=== PATIENT | male | born 1935 | race Caucasian/White ===

== ENCOUNTER 2016-10-10 07:06 | Day surgery (SDC) | payer OTHER ==
[2016-10-10] MEDS ORDERED: FUROSEMIDE 20 MG TABLET (FP) PO SCH (09:30)
[2016-10-10 09:54] VITALS: TEMP 97.6; BMI 25.7
[2016-10-10 10:15] LABS: MCH 39.4 pg (25.7-33.7); MCHC 33.6 g/dl (32.0-35.9); MEAN CELL VOLUME 117.1 fl (80-96); MEAN PLT VOLUME 7.9 fl (7.5-11.1); PLATELET COUNT 253 K/MM3 (134-434); RDW 24.4 % (11.9-15.9); WHITE BLOOD COUNT 6.5 K/mm3 (4.0-10.0)
[2016-10-10 10:33] LABS: ALBUMIN 2.9 g/dl (3.4-5.0); ANION GAP 7 (8-16); CALCIUM 7.8 mg/dL (8.5-10.1); CO2 23 mmol/L (21-32); COCKROFT - GAULT 71.09; GLUCOSE,RANDOM 103 mg/dL (74-106); MAGNESIUM 2.4 mg/dL (1.8-2.4); SGOT/AST 17 U/L (15-37); SGPT/ALT 21 U/L (12-78)
[2016-10-10 10:35] LABS: ALK PHOS 70 U/L (45-117); BILIRUBIN,TOTAL 0.4 mg/dL (0.2-1.0); TOT PROT 6.4 g/dl (6.4-8.2)
[2016-10-10 13:04] LABS: ANISOCYTOSIS 2+; HYPOCHROMIA 1+; MICROCYTOSIS 1+; PLATELET ESTIMATE ADEQUATE (NORMAL)
[2016-10-10 18:01] VITALS: BP 131/59; PULSE 65
--- NOTE | 2016-10-10 20:07 | HP ---
Admitting History and Physical - Admission Chief Complaint: Symptomatic anemia History Source: Patient - Past Medical History Renal/: Yes: BPH Heme/Onc: Yes: Other (MDS) - Smoking History Smoking history: Former smoker Have you smoked in the past 12 months: No If you are a former smoker, when did you quit?: 1987 - Alcohol/Substance Use Hx Alcohol Use: No Home Medications - Allergies Allergies/Adverse Reactions: Allergies Allergy/AdvReac Type Severity Reaction Status Date / Time Antihistamines - Alkylamine AdvReac Severe Urinary Unverified 08/18/12 14:55 Retention - Home Medications Home Medications: Ambulatory Orders Cyanocobalamin/Folic Acid [Vitamin N87-Nxokl Acid Tablet] 1 each PO DAILY tablet 08/18/12 Metoprolol Succinate 25 mg PO AM 11/19/15 Cyanocobalamin [Vitamin B12 -] 2,000 mcg PO DAILY 05/26/16 Review of Systems - Review of Systems Constitutional: reports: Weakness Eyes: denies: Double Vision, Photophobia HENT: denies: Difficult Swallowing, Epistaxis, Hearing Loss, Throat Pain, Other Neck: denies: No Symptoms, Decreased ROM, Pain on Movement, Tenderness Cardiovascular: reports: Shortness of Breath. denies: Palpitations Respiratory: reports: Exercise Intolerance, SOB, SOB on Exertion. denies: Hemoptysis, Orthopnea Gastrointestinal: denies: Constipation, Nausea Genitourinary: reports: Other (nocturia) Musculoskeletal: denies: Back Pain, Extremity Pain, Muscle Pain Integumentary: denies: Blister, Bruising, Eczema, Erythema Neurological: reports: No Symptoms Endocrine: reports: No Symptoms. denies: Unexplained Weight Loss Hematology/Lymphatic: denies: Excessive Bleeding, Swollen Glands Psychiatric: denies: Anxiety, Depression Physical Examination Vital Signs: Vital Signs Temperature 97.6 F 10/10/16 17:56 Pulse Rate 65 10/10/16 17:56 Respiratory Rate 18 10/10/16 17:56 Blood Pressure 131/59 10/10/16 17:56 O2 Sat by Pulse Oximetry (%) Constitutional: Yes: No Distress, Calm Eyes: Yes: PERRL. No: Diplopia, Ptosis, Sclera Icterus HENT: Yes: Atraumatic, Normocephalic. No: Epistaxis, Hoarseness, Rhinnorhea, Thrush, Tonsillar Exudate Neck: No: Decreased ROM, Lymphadenopathy, Tenderness, Thyromegaly Cardiovascular: Yes: Regular Rate and Rhythm Respiratory: Yes: WNL, CTA Bilaterally Gastrointestinal: Yes: Normal Bowel Sounds, Soft. No: Abdomen, Obese, Ascites, Hepatomegaly, Splenomegaly Breast(s): No: Gynecomastia Musculoskeletal: No: Joint Stiffness, Joint Swelling, Muscle Pain Extremities: No: Calf Tenderness, Cold, Cool, Cyanosis Edema: No Integumentary: Yes: WNL Neurological: Yes: WNL, Unresponsive Psychiatric: Yes: WNL Labs: CBC, BMP 10/10/16 09:35 10/10/16 09:35 Problem List - Problems (1) MDS (myelodysplastic syndrome) Assessment/Plan: MDS- transfusion requirements increasing. May need to consider procrit in future. Hct-19.5% To receive 2 units of packed cells. Code(s): D46.9 - MYELODYSPLASTIC SYNDROME, UNSPECIFIED
[2016-10-10 21:17] LABS: MCH 37.1 pg (25.7-33.7); MCHC 34.9 g/dl (32.0-35.9); MEAN CELL VOLUME 106.3 fl (80-96); MEAN PLT VOLUME 8.2 fl (7.5-11.1); PLATELET COUNT 248 K/MM3 (134-434); RDW 27.7 % (11.9-15.9); WHITE BLOOD COUNT 7.6 K/mm3 (4.0-10.0)
== END 2016-10-10 21:12 | disposition home or self-care (01) ==
LOC: JONCBLOOD 07:06 → J7W 08:46 → JONCBLOOD 21:12
PROVIDERS: ATTEND Internal Medicine Hematology & Oncology
PROC: 30233N1 Transfusion of Nonautologous Red Blood Cells into Peripheral Vein, Percutaneous Approach (ICD-10-PCS; principal; 2016-10-10)
DX: D46.9 Myelodysplastic syndrome, unspecified (principal)
CPT/HCPCS: 36415; 36430; 80053; 83735; 85025; 85027; 86850; 86900; 86901; 86922; P9038; P9058

== ENCOUNTER 2016-10-19 07:21 | Day surgery (SDC) | payer OTHER ==
[2016-10-18 16:05] VITALS: BMI 25.7
[2016-10-19 08:33] VITALS: TEMP 98.1
[2016-10-19 14:30] VITALS: BP 126/62; PULSE 74
--- NOTE | 2016-10-20 15:20 | PATH ---
Surgical Pathology Report Patient Name: CASSIDY HUSAIN [facility]. Rec. #: [id number] /Age/Gender: 1935 (Age: 81) / M Account: [id number] Location: RADIOLOGY Taken: 10/19/2016 Received: 10/19/2016 Reported: 10/20/2016 Physicians: Angel Cevallos M.D. Orville Reyes M.D. Specimen(s) Received RIGHT LUNG BIOPSY Clinical History 81-year-old male with 5 cm right lower lobe lung mass, r/o primary lung cancer Final Diagnosis LUNG, RIGHT, LOWER LOBE, CT GUIDED CORE BIOPSY: SQUAMOUS CELL CARCINOMA, MODERATELY TO POORLY DIFFERENTIATED (SEE COMMENT). Comment: Immunohistochemical stains performed and interpreted at [facility] show the following: The tumor cells are positive for Ae1/Ae3 and p63 immunostains, and are negative for TTF1, CK7, and CK20. The morphologic findings and the immunoprofile are consistent with moderately to poorly differentiated squamous cell carcinoma. PD-L1 IHC (Keytruda) is pending; results will be reported in an addendum. The case was discussed with Dr. Reyes on 10/20/16. Electronically Signed Beka Monteiro M.D. Addendum Reported: 10/26/2016 Addendum Diagnosis PD-L1 Immunohistochemistry Analysis performed and interpreted at [facility] [place] (Specimen #[id number]) shows the following results. PD-L1 (KEYTRUDA) Tumor Proportion Score: 1% Interpretation: Low Expression See [facility] report for additional details. Robert Ruiz M.D. Gross Description Received in formalin labeled "right lung biopsy" are 4 menchaca, cylindrical portions of soft tissue ranging from 0.4-1.0 cm in length and averaging 0.1 cm in diameter. The specimens are submitted in toto in one cassette. 10/19/201610/19/2016
== END 2016-10-19 14:32 | disposition home or self-care (01) ==
LOC: JRADIR 07:21
PROVIDERS: ATTEND Internal Medicine Hematology & Oncology
PROC: BB2 Imaging, Respiratory System, Computerized Tomography (CT Scan) (ICD-10-PCS; principal; 2016-10-19)
PROC: 0BBF3ZX Excision of Right Lower Lung Lobe, Percutaneous Approach, Diagnostic (ICD-10-PCS; 2016-10-19)
DX: C34.31 Malignant neoplasm of lower lobe, right bronchus or lung (principal)
CPT/HCPCS: 71010-TC; 77012-TC; 88305-TC; 88341-TC; 88342-TC

== ENCOUNTER 2016-12-01 09:13 | Day surgery (SDC) | payer OTHER ==
[2016-12-01] MEDS ORDERED: POTASSIUM CHLORIDE TABS 20 MEQ TABLET.ER (FP) PO ONE (11:00)
[2016-12-01] MEDS ORDERED: FUROSEMIDE 40 MG/4 ML INJECTABLE VIAL IVPUSH ONE ×2 (11:00→17:30)
[2016-12-01 11:13] VITALS: BMI 25.7
[2016-12-01 11:14] LABS: MCHC 34.1 g/dl (32.0-35.9); MEAN CELL VOLUME 117.2 fl (80-96); PLATELET COUNT 253 K/MM3 (134-434); RDW 25.1 % (11.9-15.9); WHITE BLOOD COUNT 7.7 K/mm3 (4.0-10.0)
[2016-12-01 11:29] LABS: ALBUMIN 3.3 g/dl (3.4-5.0); ANION GAP 5 (8-16); BILIRUBIN,TOTAL 0.4 mg/dL (0.2-1.0); CALCIUM 8.8 mg/dL (8.5-10.1); CO2 28 mmol/L (21-32); COCKROFT - GAULT 64.63; CREATININE 1.1 mg/dL (0.7-1.3); GLUCOSE,RANDOM 101 mg/dL (74-106); SGOT/AST 18 U/L (15-37); SGPT/ALT 21 U/L (12-78); TOT PROT 7.1 g/dl (6.4-8.2)
[2016-12-01 11:30] LABS: ALK PHOS 80 U/L (45-117)
[2016-12-01 11:54] LABS: PLATELET ESTIMATE ADEQUATE (NORMAL)
[2016-12-01 11:55] LABS: ANISOCYTOSIS 2+; HYPOCHROMIA 1+; MICROCYTOSIS 1+
--- NOTE | 2016-12-01 14:28 | HP ---
Admitting History and Physical - Admission Chief Complaint: symptomatic anemia History Source: Patient, Caregiver - Past Medical History Renal/: Yes: BPH Heme/Onc: Yes: Other (MDS) - Smoking History Smoking history: Former smoker Have you smoked in the past 12 months: No If you are a former smoker, when did you quit?: 1987 - Alcohol/Substance Use Hx Alcohol Use: Yes (RARELY) Home Medications - Allergies Allergies/Adverse Reactions: Allergies Allergy/AdvReac Type Severity Reaction Status Date / Time Antihistamines - Alkylamine AdvReac Severe Urinary Unverified 08/18/12 14:55 Retention - Home Medications Home Medications: Ambulatory Orders Cyanocobalamin/Folic Acid [Vitamin O24-Ovods Acid Tablet] 1 each PO DAILY tablet 08/18/12 Metoprolol Succinate 25 mg PO AM 11/19/15 Cyanocobalamin [Vitamin B12 -] 2,000 mcg PO DAILY 05/26/16 Pantoprazole Sodium 40 mg PO DAILY 10/18/16 Simvastatin 10 mg PO HS 10/19/16 Review of Systems - Review of Systems Constitutional: denies: Fever, Lethargy, Loss of Appetite, Weakness Eyes: denies: Blurred Vision, Double Vision HENT: denies: Difficult Swallowing, Epistaxis, Throat Pain Neck: denies: Stiffness, Swollen Glands, Tenderness Cardiovascular: reports: Shortness of Breath Respiratory: reports: SOB, SOB on Exertion, Other (Lung mass- squamous cell ca) . denies: Cough, Hemoptysis Gastrointestinal: denies: Abdominal Pain, Constipation, Diarrhea Genitourinary: reports: Other (nocturia- 2-3 x per night). denies: Dysuria, Flank Pain Breasts: reports: No Symptoms Reported Musculoskeletal: reports: No Symptoms Integumentary: reports: No Symptoms Neurological: reports: No Symptoms Endocrine: reports: No Symptoms Hematology/Lymphatic: denies: Easily Bruised, Excessive Bleeding, Swollen Glands Psychiatric: reports: No Symptoms Physical Examination Vital Signs: Vital Signs Temperature 97.8 F 12/01/16 13:30 Pulse Rate 76 12/01/16 13:30 Respiratory Rate 18 12/01/16 13:30 Blood Pressure 130/60 12/01/16 13:30 O2 Sat by Pulse Oximetry (%) Constitutional: Yes: No Distress Eyes: Yes: PERRL. No: Diplopia, Ptosis, Sclera Icterus HENT: Yes: Atraumatic, Normocephalic. No: Nasal Congestion, Pharyngeal Erythema , Thrush Neck: Yes: Supple, Trachea Midline. No: Lymphadenopathy, Tenderness, Thyromegaly Cardiovascular: Yes: Regular Rate and Rhythm, Murmur Respiratory: Yes: Regular, CTA Bilaterally Gastrointestinal: Yes: Normal Bowel Sounds, Soft. No: Hepatomegaly, Splenomegaly Musculoskeletal: No: Back Pain, Joint Stiffness, Joint Swelling, Muscle Pain Extremities: No: Cyanosis, Deformity Edema: No Integumentary: No: Jaundice, Rash Neurological: Yes: WNL ...Motor Strength: WNL Psychiatric: Yes: WNL Labs: CBC, BMP 12/01/16 10:46 12/01/16 10:46 Problem List - Problems (1) MDS (myelodysplastic syndrome) Assessment/Plan: CMML- intermittent need for transfusion; Symptomatic anemia with Hct -22% For transfusion therapy. Will receive 2 units of packed cells. Code(s): D46.9 - MYELODYSPLASTIC SYNDROME, UNSPECIFIED Assessment/Plan Symptomatic Anemia For 2 units of packed cells. Lung ca Squamous cell ca- being prepped for surgery.
[2016-12-01 19:01] VITALS: BP 129/64; PULSE 80; TEMP 98.3
[2016-12-01 22:18] LABS: MCH 35.5 pg (25.7-33.7); MCHC 33.8 g/dl (32.0-35.9); MEAN CELL VOLUME 104.9 fl (80-96); PLATELET COUNT 237 K/MM3 (134-434); RDW 28.3 % (11.9-15.9); WHITE BLOOD COUNT 8.4 K/mm3 (4.0-10.0)
== END 2016-12-01 22:10 | disposition home or self-care (01) ==
LOC: JONCBLOOD 09:13 → J5S 09:32 → JONCBLOOD 22:10
PROVIDERS: ATTEND Internal Medicine Hematology & Oncology
PROC: 30233N1 Transfusion of Nonautologous Red Blood Cells into Peripheral Vein, Percutaneous Approach (ICD-10-PCS; principal; 2016-12-01)
DX: D46.9 Myelodysplastic syndrome, unspecified (principal)
CPT/HCPCS: 36415; 36430; 36511; 80053; 85025; 86850; 86900; 86901; 86922; P9038; P9058

== ENCOUNTER 2016-12-26 07:46 | Day surgery (SDC) | payer OTHER ==
--- NOTE | 2016-12-26 09:36 | PN ---
Progress Note (short form) - Note Progress Note: Patient seen and examined 81 year old male with MDS with increasing transfusion requirements. Found to have lung mass-. Biopsy revealed squamous cell carcinoma. Seen at [facility] and underwent mediastinsocopy - reportedly negative. PET -- no distant mets. Scheduled to have VATS lobectomy on 12/28. Enters for transfusion therapy. ROS- some light headedness and dizziness; no headaches, diplopia, epistaxis, dysphagia, chest pains, some SOB on exertion, no GI complaints of nausea, emesis , diarrhea, constipation, melena, hematochezia. Has occasional dysuria, and nocturia. No back or bone pains. NKDA Meds- Flomaax- 0.4 mg h.s. PMH-- - MDS, Lung cancer, BPH P.E. B.P --- 140/69 Pulse--73 Temp---97.5 RR-18 HEENT: DHARMESH, EOM Intact Oropharynx: No thrush, No mucositis Neck: Supple Nodes: Without adenopathy Cor: RSR, No murmurs, No gallops Lungs: Clear to P&A Abd: Soft, Normal bowel sounds, No organomegaly Ext:No significant edema Skin: No rashes, Integument intact Hct- 21% CMP- non revealing Impression: Lung cancer MDS Anemia secondary to MDS Plan: Transfuse 2 units of packed cells with lasix diuresis. Check CBC and transfuse 3rd unit prn.
[2016-12-26] MEDS ORDERED: FUROSEMIDE 20 MG TABLET (FP) PO SCH (15:15)
[2016-12-26 20:50] LABS: MCH 35.4 pg (25.7-33.7); MCHC 34.3 g/dl (32.0-35.9); MEAN CELL VOLUME 103.3 fl (80-96); MEAN PLT VOLUME 8.1 fl (7.5-11.1); PLATELET COUNT 262 K/MM3 (134-434); RDW 27.5 % (11.9-15.9); WHITE BLOOD COUNT 8.1 K/mm3 (4.0-10.0)
[2016-12-27 00:45] VITALS: TEMP 98.6
[2016-12-27 01:19] VITALS: BP 143/72; PULSE 79
== END 2016-12-27 01:45 | disposition home or self-care (01) ==
LOC: JONCBLOOD 07:46 → J7W 07:48 → JONCBLOOD 12-27 01:45
PROVIDERS: ATTEND Internal Medicine Hematology & Oncology
PROC: 30233N1 Transfusion of Nonautologous Red Blood Cells into Peripheral Vein, Percutaneous Approach (ICD-10-PCS; principal; 2016-12-26)
DX: D46.9 Myelodysplastic syndrome, unspecified (principal); D63.8 Anemia in other chronic diseases classified elsewhere; C34.90 Malignant neoplasm of unspecified part of unspecified bronchus or lung
CPT/HCPCS: 36415; 36430; 85027; P9058